=== PATIENT | male | born 1960 | race Caucasian/White ===

== ENCOUNTER 2018-07-23 10:24 | Emergency (ER) | payer MEDICAID ==
[~2018-07-23] VITALS: Ht 177.8 cm; Wt 97.4 kg
[2018-07-23 11:46] LABS: BASOPHILS # (AUTO) 0.04 x10^3/uL (0-0.1); BASOPHILS % (AUTO) 1 % (0-1); EOSINOPHILS # (AUTO) 0.04 x10^3/uL (0-0.4); EOSINOPHILS % (AUTO) 1 % (1-7); LYMPHOCYTES # (AUTO) 1.37 x10^3/uL (1-3.4); LYMPHOCYTES % (AUTO) 29 % (22-44); MD NO; MEAN CORPUSCULAR HEMOGLOBIN 30.5 pg (27.5-34.5); MEAN CORPUSCULAR HGB CONC 34.4 g/dL (33.2-36.2); MEAN CORPUSCULAR VOLUME 88.8 fL (81-97); MEAN PLATELET VOLUME 7.3 fL (7.4-10.4); MONOCYTES # (AUTO) 0.53 x10^3/uL (0.2-0.8); MONOCYTES % (AUTO) 11 % (2-9); NEUTROPHILS # (AUTO) 2.79 x10^3/uL (1.8-6.8); NEUTROPHILS % (AUTO) 59 % (42-75); PLATELET COUNT 306 x10^3/uL (130-400); RED BLOOD COUNT 5.08 x10^6/uL (4.38-5.82); RED CELL DISTRIBUTION WIDTH 13.8 % (9.4-14.8)
[2018-07-23 11:56] LABS: ALANINE AMINOTRANSFERASE 32 U/L (12-78); ALBUMIN 3.5 g/dL (3.4-5.0); ANION GAP 8 mmol/L (5-15); CALCIUM 8.2 mg/dL (8.5-10.1); CHLORIDE 103 mmol/L (98-107)
[2018-07-23 11:58] LABS: ALKALINE PHOSPHATASE 99 U/L (45-117); BILIRUBIN,TOTAL 0.6 mg/dL (0.2-1.0); TOTAL PROTEIN 7.9 g/dL (6.4-8.2)
[2018-07-23 12:22] VITALS: BP 114/79
== END 2018-07-23 12:25 | disposition home or self-care (01) ==
LOC: ED 12:15
DX: B34.9 Viral infection, unspecified (principal); R11.2 Nausea with vomiting, unspecified; F17.200 Nicotine dependence, unspecified, uncomplicated
CPT/HCPCS: 36415; 71046; 80053; 85025; 99285

== ENCOUNTER 2019-12-30 18:00 | Emergency (ER) | payer MEDICAID ==
[~2019-12-30] VITALS: Ht 177.8 cm; Wt 78.0 kg
[2019-12-30 18:04] VITALS: BP 129/82
== END 2019-12-30 18:52 | disposition home or self-care (01) ==
LOC: ED 18:45
DX: B86 Scabies (principal); L29.9 Pruritus, unspecified; F17.200 Nicotine dependence, unspecified, uncomplicated
CPT/HCPCS: 99283

== ENCOUNTER 2021-02-13 00:13 | Emergency (ER) | payer SELFPAY ==
[~2021-02-13] VITALS: Ht 177.8 cm; Wt 81.0 kg
[2021-02-13] MEDS ORDERED: IBUPROFEN 600 MG TABLET PO ONE (00:30)
[2021-02-13] MEDS ORDERED: IBUPROFEN 600 MG TABLET ONE (00:42)
[2021-02-13 01:25] VITALS: BP 126/73
--- NOTE | 2021-02-13 01:30 | NUR ---
Patient given discharge instructions and they have confirmed that they understand the instructions. Patient ambulatory with steady gait.
== END 2021-02-13 01:34 | disposition home or self-care (01) ==
LOC: ED 01:10
DX: R07.89 Other chest pain (principal); R94.31 Abnormal electrocardiogram [ECG] [EKG]; F17.210 Nicotine dependence, cigarettes, uncomplicated
CPT/HCPCS: 71045; 93005; 99283; 99406